=== PATIENT | male | born 1970 | race African-American/Black ===

== ENCOUNTER 2024-02-27 06:52 | Emergency (ER) | payer MEDICAID ==
[~2024-02-27] VITALS: Ht 180.3 cm; Wt 127.0 kg
[2024-02-27 07:03] VITALS: O2SAT 97
[2024-02-27] MEDS ORDERED: LISI10TA26 MT (09:30)
[2024-02-27 09:49] VITALS: BP 149/92; PULSE 82; RESP 22; TEMP 98
== END 2024-02-27 09:51 | disposition home or self-care (01) ==
LOC: ER 06:52
DX: H93.13 Tinnitus, bilateral (principal); I10 Essential (primary) hypertension
CPT/HCPCS: 99283; Z7610 ×2

== ENCOUNTER 2024-03-06 18:52 | Emergency (ER) | payer MEDICAID ==
[~2024-03-06] VITALS: Ht 180.3 cm; Wt 127.0 kg
[~2024-03-06 18:52] MED LIST: LISI10TA26 MT
[2024-03-06 18:58] VITALS: O2SAT 96
[2024-03-06 23:08] LABS: BASOPHILS % 0.8 % (0.0-2.0); EOSINOPHILS % 0.3 % (0.0-5.0); HEMATOCRIT. 45.5 % (42.0-52.0); HEMOGLOBIN. 15.3 g/dL (14.0-18.0); LYMPHOCYTES % 19.1 % (20.0-50.0); MEAN CORPUSCULAR HEMOGLOBIN 29.5 pg (28.0-32.0); MEAN CORPUSCULAR HGB CONC 33.7 g/dL (31.0-37.0); MEAN CORPUSCULAR VOLUME 87.5 fL (80.0-94.0); MEAN PLATELET VOLUME 9.2 fl (7.4-10.4); MONOCYTES % 6.3 % (2.0-8.0); NEUTROPHILS % 73.5 % (40.0-76.0); PLATELET 222 x1000/uL (130-400); RED CELL DISTRIBUTION WIDTH 14.2 % (11.6-14.6); WHITE BLOOD COUNT 9.9 x1000/uL (4.5-11.0)
[2024-03-06 23:16] LABS: CHLORIDE 108 mEq/L (98-107); POTASSIUM 3.7 mEq/L (3.5-5.1); SODIUM 139 mEq/L (136-145)
[2024-03-06 23:17] LABS: CARBON DIOXIDE 24 mEq/L (21-32)
[2024-03-06 23:18] LABS: CALCIUM 9.2 mg/dL (8.7-10.4)
[2024-03-06 23:22] LABS: GLUCOSE 109 mg/dL (70-105)
[2024-03-06 23:23] LABS: UREA NITROGEN BLOOD 11 mg/dL (9-23)
[2024-03-06 23:24] LABS: ALANINE AMINOTRANSFERASE 21 IU/L (10-49); ALBUMIN 4.3 g/dL (3.2-4.8); ASPARTATE AMINOTRANSFERASE 24 IU/L (<34)
[2024-03-06 23:25] LABS: BILIRUBIN TOTAL 0.7 mg/dL (0.1-1.0); PROTEIN TOTAL 7.2 g/dL (6.0-8.3)
[2024-03-07 00:18] VITALS: BP 172/95; PULSE 70; RESP 18; TEMP 98
[2024-03-07] MEDS ORDERED: LISI20TA31 MT (00:20)
[2024-03-07] MEDS: CLONIDINE 0.1MG TABLET PO ONE (00:21)
== END 2024-03-07 00:26 | disposition home or self-care (01) ==
LOC: ER 18:52
DX: I10 Essential (primary) hypertension (principal)
CPT/HCPCS: 36415; 80053; 85025; 99283

== ENCOUNTER 2024-03-24 13:04 | Emergency (ER) | payer MEDICAID ==
[~2024-03-24] VITALS: Ht 180.3 cm; Wt 125.0 kg
[~2024-03-24 13:04] MED LIST changes: +LISI20TA31 MT
[2024-03-24 13:06] VITALS: O2SAT 98
[2024-03-24 14:15] LABS: BASOPHILS % 0.4 % (0.0-2.0); EOSINOPHILS % 1.7 % (0.0-5.0); HEMATOCRIT. 44.7 % (42.0-52.0); HEMOGLOBIN. 14.9 g/dL (14.0-18.0); LYMPHOCYTES % 29.9 % (20.0-50.0); MEAN CORPUSCULAR HEMOGLOBIN 29.8 pg (28.0-32.0); MEAN CORPUSCULAR HGB CONC 33.4 g/dL (31.0-37.0); MEAN PLATELET VOLUME 9.5 fl (7.4-10.4); MONOCYTES % 9.3 % (2.0-8.0); NEUTROPHILS % 58.7 % (40.0-76.0); PLATELET 218 x1000/uL (130-400); RED BLOOD CELL COUNT 5.02 mill/uL (4.7-6.1); RED CELL DISTRIBUTION WIDTH 14.8 % (11.6-14.6); WHITE BLOOD COUNT 8.8 x1000/uL (4.5-11.0)
[2024-03-24 14:24] LABS: CHLORIDE 108 mEq/L (98-107); POTASSIUM 3.9 mEq/L (3.5-5.1); SODIUM 140 mEq/L (136-145)
[2024-03-24 14:25] LABS: CARBON DIOXIDE 26 mEq/L (21-32)
[2024-03-24 14:26] LABS: CALCIUM 8.9 mg/dL (8.7-10.4)
[2024-03-24 14:30] LABS: GLUCOSE 98 mg/dL (70-105); UREA NITROGEN BLOOD 17 mg/dL (9-23)
[2024-03-24 15:20] LABS: CLARITY URINE CLEAR (CLEAR); COLOR URINE YELLOW (YELLOW); GLUCOSE URINE NEGATIVE (NEGATIVE); KETONES URINE TRACE (NEGATIVE); LEUKOCYTE ESTERASE URINE NEGATIVE (NEGATIVE); NITRITE URINE NEGATIVE (NEGATIVE); OCCULT BLOOD URINE NEGATIVE (NEGATIVE); PH URINE 6.5 (4.5-8.0); PROTEIN URINE NEGATIVE (NEGATIVE); SPECIFIC GRAVITY URINE 1.027 (1.005-1.030)
[2024-03-24 16:21] VITALS: BP 137/89; PULSE 84; RESP 16; TEMP 98.8
== END 2024-03-24 16:34 | disposition home or self-care (01) ==
LOC: ER 13:04
DX: I10 Essential (primary) hypertension (principal)
CPT/HCPCS: 36415; 80048; 81003; 85025; 99283

== ENCOUNTER 2024-08-11 06:41 | Emergency (ER) | payer MEDICAID ==
[~2024-08-11] VITALS: Ht 177.8 cm; Wt 125.4 kg
[2024-08-11 06:50] VITALS: O2SAT 97
[2024-08-11 07:37] LABS: BASOPHILS % 0.3 % (0.0-2.0); EOSINOPHILS % 1.7 % (0.0-5.0); HEMOGLOBIN. 15.3 g/dL (14.0-18.0); LYMPHOCYTES % 36.3 % (20.0-50.0); MEAN CORPUSCULAR HEMOGLOBIN 29.3 pg (28.0-32.0); MEAN CORPUSCULAR HGB CONC 32.5 g/dL (31.0-37.0); MEAN CORPUSCULAR VOLUME 90.1 fL (80.0-94.0); MEAN PLATELET VOLUME 9.5 fl (7.4-10.4); MONOCYTES % 10.8 % (2.0-8.0); NEUTROPHILS % 50.9 % (40.0-76.0); PLATELET 200 x1000/uL (130-400); RED BLOOD CELL COUNT 5.22 mill/uL (4.7-6.1); RED CELL DISTRIBUTION WIDTH 14.3 % (11.6-14.6); WHITE BLOOD COUNT 8.6 x1000/uL (4.5-11.0)
[2024-08-11 07:43] LABS: CHLORIDE 112 mEq/L (98-107); POTASSIUM 3.9 mEq/L (3.5-5.1); SODIUM 141 mEq/L (136-145)
[2024-08-11 07:44] LABS: CALCIUM 9.4 mg/dL (8.7-10.4); CARBON DIOXIDE 24 mEq/L (21-32)
[2024-08-11 07:49] LABS: GLUCOSE 97 mg/dL (70-105); UREA NITROGEN BLOOD 15 mg/dL (9-23)
[2024-08-11 07:51] LABS: TROPONIN I HIGH SENSITIVITY < 4 ng/L (3.0-53)
[2024-08-11 08:14] VITALS: BP 161/90; PULSE 61; RESP 16; TEMP 37.00296; O2SAT 99
== END 2024-08-11 08:30 | disposition home or self-care (01) ==
LOC: ER 06:41
DX: I10 Essential (primary) hypertension (principal); F19.90 Other psychoactive substance use, unspecified, uncomplicated; Z79.899 Other long term (current) drug therapy
CPT/HCPCS: 36415; 71045; 80048; 84484; 85025; 99284